=== PATIENT | female | born 1985 | race Caucasian/White ===

== ENCOUNTER 2016-09-26 06:52 | Emergency (ER) | payer OTHER ==
[2016-09-26 06:59] VITALS: BP 126/74; PULSE 73; TEMP 99.7; BMI 20.9
--- NOTE | 2016-09-26 07:06 | PDOC ---
History of Present Illness - General Chief Complaint: Vomiting/Diarrhea Stated Complaint: n/v/d Time Seen by Provider: 09/26/16 06:59 History Source: Patient, Old Records Exam Limitations: No Limitations - History of Present Illness Initial Comments: 09/26/16 07:22 31-year-old female with no reported past medical history presents the emergency department with 12 hour history of nausea, vomiting and diarrhea as well as abdominal pain. The abdominal pain is mid and lower abdomen and is described as waxing and waning and dull. She's had 3 episodes of diarrhea that is described as watery with questionable mucus in it but no blood. She initially had vomit that contained only food contents but now it is bilious. She has no history of prior abdominal surgery. The patient has had similar episodes in the past that have been all related to her menses; however, this episode seems to be more intense than prior episodes. Past History - Travel Traveled outside of the country in the last 30 days: No Close contact w/someone who was outside of country & ill: No - Past Medical History Allergies/Adverse Reactions: Allergies Allergy/AdvReac Type Severity Reaction Status Date / Time Sulfa (Sulfonamide Allergy Verified 09/26/16 06:53 Antibiotics) Home Medications: Ambulatory Orders Nitrofurantoin Monohyd/M-Cryst [Macrobid -] 100 mg PO BID #14 capsule 09/26/16 Anemia: No Asthma: No Cancer: No Cardiac Disorders: No Hx Myocardial Infarction: No CVA: No COPD: No CHF: No DVT: No Dementia: No Diabetes: No Dialysis: No GI Disorders: No Disorders: No HTN: No Hypercholesterolemia: No HIV: No Kidney Stones: No Liver Disease: No Psychiatric Problems: No Suicide Attempt (Hx): No Seizures: No Thyroid Disease: No Lung CA: No Other medical history: denies - Psycho/Social/Smoking Cessation Hx Anxiety: No Suicidal Ideation: No Smoking History: Never smoked Hx Alcohol Use: Yes Drug/Substance Use Hx: No Substance Use Type: Alcohol Review of Systems - Review of Systems Constitutional: No: Symptoms Reported, See HPI, Chills, Diaphoresis, Fever, Loss of Appetite, Malaise, Night Sweats, Weakness, Weight Stable, Unintentional Wgt. Loss, Unexplained wgt Loss, Other HEENTM: No: Symptoms Reported, See HPI, Eye Pain, Blurred Vision, Tearing, Recent change in vision, Double Vision, Cataracts, Ear Pain, Ocular Prothesis, Ear Discharge, Nose Pain, Nose Congestion, Tinnitus, Nose Bleeding, Hearing Loss , Throat Pain, Throat Swelling, Mouth Pain, Dental Problems, Difficulty Swallowing, Mouth Swelling, Other Respiratory: No: Symptoms reported, See HPI, Cough, Orthopnea, Shortness of Breath, SOB with Exertion, SOB at Rest, Stridor, Wheezing, Productive cough, Hemoptysis, Other Cardiac (ROS): No: Symptoms Reported, See HPI, Chest Pain, Edema, Irregular Heart Rate, Lightheadedness, Palpitations, Syncope, Chest Tightness, Other ABD/GI: Yes: See HPI : No: Symptoms Reported Musculoskeletal: No: Symptoms Reported Integumentary: No: Symptoms Reported Neurological: No: Symptoms reported *Physical Exam - Vital Signs Last Vital Signs Temp Pulse Resp BP Pulse Ox 99.7 F H 73 18 126/74 100 09/26/16 06:53 09/26/16 06:53 09/26/16 06:53 09/26/16 06:53 09/26/16 06:53 - Physical Exam Comments: 09/26/16 07:25 GENERAL: Well developed, well nourished. Awake and alert. No acute distress. HEENT: Normocephalic, atraumatic. PERRLA, EOMI. No conjunctival pallor. Sclera are non- icteric. Moist mucous membranes. Oropharynx is clear. NECK: Supple. Full ROM. No JVD. No lymphadenopathy. CARDIOVASCULAR: Regular rate and rhythm. No murmurs, rubs, or gallops. Distal pulses are 2+ and symmetric. PULMONARY: No evidence of respiratory distress. Lungs clear to auscultation bilaterally. No wheezing, rales or rhonchi. ABDOMINAL: Soft. There is tenderness in the RUQ and epigastrium with no Dyer's sign. No rebound or guarding. No organomegaly. Normoactive bowel sounds. MUSCULOSKELETAL Normal range of motion at all joints. No bony deformities or tenderness. No CVA tenderness. EXTREMITIES: No cyanosis. No clubbing. No edema. No calf tenderness. SKIN: Warm and dry. Normal capillary refill. No rashes. No jaundice. NEUROLOGICAL: Alert, awake, appropriate. Cranial nerves 2-12 intact. Grossly non-focal exam. PSYCHIATRIC: Cooperative. Good eye contact. Appropriate mood and affect. ED Treatment Course - LABORATORY CBC & Chemistry Diagram: 09/26/16 07:38 09/26/16 07:38 Medical Decision Making - Medical Decision Making 09/26/16 07:26 31-year-old female with nausea, vomiting, abdominal pain and diarrhea. Differential diagnosis includes but is not limited to: Colitis, acute gastroenteritis, gallbladder disease (Cholelithiasis/cholecystitis), pancreatitis, endometriosis, electrolyte abnormality, dehydration, toxic/ metabolic derangement. Plan: 1. Labs 2. IV fluids for hydration 3. Antiemetics 4. Pain management 5. Abdominal ultrasound 6. Observe and reevaluate 09/26/16 10:15 Addendum: The labs and ultrasound results were reviewed and noted in the EMR as well as discussed with the patient. Of note, her glucose was 229 which decreased to 125 after 2 liters of IVF. She has a + family h/o DM but has never been dx'd with diabetes herself. I have discussed the importance of folowing up with a PCP with the patient and have advised her to do so within 1- 2 weeks. Since she is having lower abdomnal pain and has bacteria and WBC in the urine analysis I will treat for UTI with Macrobid. The patient will be discharged home with Rx for macrobid providing she can tolerate PO without nausea or vomiting. I have also advised the patient to return to the ED if her symptoms persist, worsen or new Sx arise. *DC/Admit/Observation/Transfer Diagnosis at time of Disposition: Nausea and vomiting, Diarrhea, Abdominal pain, UTI (urinary tract infection), Hyperglycemia - Discharge Dispostion Disposition: HOME Condition at time of disposition: Stable Admit: No - Prescriptions Prescriptions: Nitrofurantoin Monohyd/M-Cryst [Macrobid -] 100 mg PO BID #14 capsule - Patient Instructions Printed Discharge Instructions: DI for Urinary Tract Infection (UTI) Additional Instructions: You have an elevated glucose in your blood--this may be an indication that you have diabetes or the start of diabetes. You are also being treated for a urinary tract infection with macrobid 100mg--take one tablet twice per day. You have been given the first dose in the Emergency Department. Please follow- up with a primary carephysician within one week. You may return to the ED if your symptoms persist, worsen or new symptoms arise.
[2016-09-26] MEDS ORDERED: ONDANSETRON 4 MG/2 ML VIAL IVPUSH ONE ×2 (07:20→08:56)
[2016-09-26] MEDS ORDERED: KETOROLAC TROMETHAMINE 30 MG/1 ML VIAL IVPUSH ONE (07:20)
[2016-09-26] MEDS ORDERED: SODIUM CHLORIDE 1,000 ML IV STA ×2 (07:20→08:08)
[2016-09-26] MEDS ORDERED: KETOROLAC TROMETHAMINE 30 MG/1 ML VIAL ONE (07:38)
[2016-09-26] MEDS ORDERED: ONDANSETRON 4 MG/2 ML VIAL ONE ×2 (07:38→08:56)
[2016-09-26 07:42] LABS: PH,URINE 5.5 (4.5-8); URINE BILIRUBIN Negative (NEGATIVE); URINE GLUCOSE (UA) 2+ (NEGATIVE); URINE KETONE 3+ (NEGATIVE); URINE LEUK ESTERASE Negative (NEGATIVE); URINE NITRITE Negative (NEGATIVE); URINE PROTEIN Trace (NEGATIVE); URINE UROBILINOGEN 0.2 E.U/dl (0.2-1.0)
[2016-09-26 07:43] LABS: URINE APPEARANCE SL CLOUDY; URINE BLOOD 2+ (NEGATIVE); URINE COLOR YELLOW; URINE WBC 0-3 (3-5)
[2016-09-26 07:44] LABS: URINE BACTERIA MODERATE /hpf (NEGATIVE)
[2016-09-26 07:57] LABS: BASOPHIL 3.3 % (0-2.0); MCH 30.9 pg (25.7-33.7); MCHC 33.9 g/dl (32.0-36.0); MEAN CELL VOLUME 91.1 fl (80-96); NEUTROPHILS 89.8 % (42.8-82.8); PLATELET COUNT 250 K/MM3 (134-434); RDW 12.4 % (11.6-15.6); WHITE BLOOD COUNT 12.1 K/mm3 (4.0-10.0)
[2016-09-26 08:55] LABS: ALK PHOS 49 U/L (32-92); ANION GAP 15 (8-16); BILIRUBIN,TOTAL 1.4 mg/dl (0.2-1.0); CO2 20 mmol/L (22-28); CREATININE 0.8 mg/dl (0.6-1.3); GLUCOSE,RANDOM 228 mg/dl (74-106); MAGNESIUM 1.9 mg/dL (1.8-2.4); PHOSPHOROUS 2.3 mg/dl (2.5-4.6); SGOT/AST 28 U/L (10-42); SGPT/ALT 20 U/L (10-40); TOT PROT 7.6 g/dl (6.4-8.3)
[2016-09-26] MEDS ORDERED: HEMOQUE TEST 1 EACH EACH ONE (09:56)
[2016-09-26] MEDS ORDERED: NITROFURANTOIN MACROCRYSTAL 50 MG CAPSULE (FP) PO SCH (10:15)
[2016-09-26] MEDS ORDERED: NITROFURANTOIN MACROCRYSTAL 50 MG CAPSULE (FP) ONE (10:23)
== END 2016-09-26 10:50 | disposition home or self-care (01) ==
LOC: FER 06:52
PROC: 3E0333Z Introduction of Anti-inflammatory into Peripheral Vein, Percutaneous Approach (ICD-10-PCS; principal; 2016-09-26)
PROC: 3E033GC Introduction of Other Therapeutic Substance into Peripheral Vein, Percutaneous Approach (ICD-10-PCS; 2016-09-26)
PROC: 3E0337Z Introduction of Electrolytic and Water Balance Substance into Peripheral Vein, Percutaneous Approach (ICD-10-PCS; 2016-09-26)
DX: R11.2 Nausea with vomiting, unspecified (principal); R19.7 Diarrhea, unspecified; N39.0 Urinary tract infection, site not specified; R73.9 Hyperglycemia, unspecified; R10.30 Lower abdominal pain, unspecified
CPT/HCPCS: 36415; 76705-TC; 80053; 81003; 81015; 83690; 83735; 84100; 84703; 85025; 87086; 99282-25